=== PATIENT | female | born 1965 | race Caucasian/White ===

== ENCOUNTER 2021-09-02 18:11 | Emergency (ER) | payer BC ==
[~2021-09-02] VITALS: Ht 160 cm; Wt 81.6 kg
[~2021-09-02 18:11] MED LIST: [UNRECOGNIZED DRUG - CODE]
[2021-09-02 18:44] VITALS: BP 141/73
[2021-09-02] MEDS ORDERED: ACCU-CHEK COMFORT CURVE STRIP VI ONE (19:45)
[2021-09-02 20:37] LABS: Basophils # (auto) 0 10 ^3/uL (0-0.2); Basophils % (auto) 0.5 % (0.0-2.0); Eosinophils # (auto) 0 10 ^3/uL (0-0.8); Eosinophils % (auto) 0.3 % (0.0-7.0); Hematocrit 40.6 % (36.0-46.0); Hemoglobin 13.5 g/dL (12.2-16.2); Lymphocytes # (auto) 1.3 10 ^3/uL (0.4-5.4); Lymphocytes % (auto) 15.6 % (10.0-50.0); Mean Corpuscular Hemoglobin 28.3 pg (28.0-32.0); Mean Corpuscular Hgb Conc. 33.2 g/dL (32.0-36.0); Mean Corpuscular Volume 85.2 fL (80.0-100.0); Monocytes # (auto) 0.6 10 ^3/uL (0-1.3); Monocytes % (auto) 7.3 % (0.0-12.0); Neutrophils # (auto) 6.3 10 ^3/uL (1.6-8.6); Neutrophils % (auto) 76.3 % (37.0-80.0); Red Blood Cells 4.76 10^6/uL (4.0-5.20); Red Cell Distribution Width 13.9 % (11.8-14.3); White Blood Cell 8.3 10^3/uL (4.4-10.8)
[2021-09-02 20:48] LABS: Albumin 3.8 g/dL (3.4-5.0); BUN/Creatinine Ratio 14.1; Potassium 3.9 mmol/L (3.5-5.1)
[2021-09-02 20:51] LABS: Bilirubin, Total 0.2 mg/dL (0.2-1.0)
== END 2021-09-03 02:41 | disposition left against medical advice (07) ==
LOC: ER 18:11
DX: R56.9 Unspecified convulsions (principal); Z53.29 Procedure and treatment not carried out because of patient's decision for other reasons
CPT/HCPCS: 36415; 80053; 80185; 82962; 85025